=== PATIENT | male | born 1985 | race Caucasian/White ===

== ENCOUNTER 2019-02-11 08:33 | Emergency (ER) | payer MEDICAID ==
[~2019-02-11] VITALS: Ht 182.9 cm; Wt 104.0 kg
[~2019-02-11 08:33] MED LIST: CEPH500C2; SULF-104
[2019-02-11 10:52] VITALS: BP 139/92
== END 2019-02-11 10:52 | disposition home or self-care (01) ==
LOC: ER 08:33
DX: R20.2 Paresthesia of skin (principal); M54.12 Radiculopathy, cervical region; F12.10 Cannabis abuse, uncomplicated
CPT/HCPCS: 72050; 82962; 99283